=== PATIENT | male | born 1985 | race Two or more races ===

== ENCOUNTER 2017-03-15 21:55 | Emergency (ER) | payer OTHER ==
[~2017-03-15] VITALS: Ht 188 cm; Wt 114.5 kg
[~2017-03-15 21:55] MED LIST: BACTRIM,SEPT1 TABLET PO; FLEXERIL10 MG PO; MOTRIN800 MG PO; NAPROSYN500 MG PO; NOHOMEMEDS; NORCO 5/3251 TABLET PO; PEN-VEE K,VEET500 MG PO; SKELAXIN800 MG PO; ULTRAM50 MG PO; VALIUM5 MG PO; VICODIN,LORT1 TABLET PO
[2017-03-15] MEDS ORDERED: NORCO 5/3251 TABLET PO (22:36)
[2017-03-15 23:09] VITALS: BP 138/76
== END 2017-03-15 23:10 | disposition home or self-care (01) ==
LOC: EME 21:55
DX: S90.31XA Contusion of right foot, initial encounter (principal); W20.8XXA Other cause of strike by thrown, projected or falling object, initial encounter; F17.210 Nicotine dependence, cigarettes, uncomplicated
CPT/HCPCS: 73630; 99281; 99284

== ENCOUNTER 2017-07-08 10:19 | Emergency (ER) | payer SELFPAY ==
[~2017-07-08] VITALS: Ht 185.4 cm; Wt 112.3 kg
[2017-07-08 12:11] LABS: HEMATOCRIT 46.8 % (38.0-50.0); MCH 28.7 PG (29.0-34.0); MCHC 33.3 G/DL (30.0-36.0); RBC DIS.WIDTH-CV 13.3 % (11.8-14.6); RED BLOOD COUNT 5.44 M/uL (4.00-5.50); WHITE BLOOD COUNT 8.3 K/uL (4.1-10.2)
[2017-07-08 12:23] LABS: CHLORIDE 103 mEq/L (99-109); POTASSIUM 4.2 mEq/L (3.7-5.4); SODIUM 139 mEq/L (136-147)
[2017-07-08 12:25] LABS: GLUCOSE 88 mg/dL (70-99)
[2017-07-08 12:27] LABS: ANION GAP 8 MEQ/L (2-14); TOTAL BILIRUBIN 0.5 mg/dL (0.0-1.0)
[2017-07-08 12:29] LABS: ALKALINE PHOSPHATASE 80 IU/L (3-129); GFR ESTIMATE (CALCULATED) > 59 mL/min/
[2017-07-08 12:30] LABS: UREA NITROGEN (BUN) 12 mg/dL (9-23)
[2017-07-08 12:32] LABS: LIPASE 9 U/L (1.0-51.0)
[2017-07-08 12:38] LABS: ADD MIUA? YES; BILIRUBIN NEGATIVE; BLOOD NEGATIVE; COLOR YELLOW ((YELLOW)); GLUCOSE (STRIP) NEGATIVE; KETONES NEGATIVE; LEUKOCYTES NEGATIVE; NITRITE NEGATIVE; PROTEIN (STRIP) NEGATIVE; SPECIFIC GRAVITY 1.021 (1.000-1.030); UROBILINOGEN 0.2 MG/DL (0.2-1.0)
[2017-07-08 12:43] LABS: BACTERIA NONE SEEN /HPF; EPITHELIAL CELLS RARE /HPF; MUCUS NONE SEEN /LPF; UCUL ADDED? NO; WHITE BLOOD CELLS 0-5 /HPF (0-5)
[2017-07-08 12:57] LABS: MEAN PLAT.VOLUME 10.6 uM^3 (9.0-12.4); PLAT.SUFFICIENCY ADEQUATE; PLATELET COUNT 236 K/uL (156-360)
[2017-07-08] MEDS ORDERED: BENTYL20 MG PO (14:07)
[2017-07-08] MEDS ORDERED: LIDODERM 5% P1 PATCH TD (14:07)
[2017-07-08] MEDS ORDERED: TORADOL10 MG PO (14:07)
[2017-07-08 14:38] VITALS: BP 131/76
== END 2017-07-08 14:15 | disposition home or self-care (01) ==
LOC: EME 10:19
PROVIDERS: Nurse Practitioner Family
DX: R10.13 Epigastric pain (principal); J45.909 Unspecified asthma, uncomplicated; F17.200 Nicotine dependence, unspecified, uncomplicated
CPT/HCPCS: 74000; 80053; 81003; 83690; 85027; 99281; 99284; J1885

== ENCOUNTER 2017-08-24 11:16 | Emergency (ER) | payer SELFPAY ==
[~2017-08-24] VITALS: Ht 185.4 cm; Wt 118.0 kg
[~2017-08-24 11:16] MED LIST changes: +BENTYL20 MG PO; +LIDODERM 5% P1 PATCH TD; +TORADOL10 MG PO
[2017-08-24 12:04] LABS: HEMATOCRIT 48.2 % (38.0-50.0); MCH 28.9 PG (29.0-34.0); MCHC 33.4 G/DL (30.0-36.0); MCV 86.5 FL (86-99); RBC DIS.WIDTH-CV 13.3 % (11.8-14.6); RBC DIS.WIDTH-SD 42.5 % (39-53); RED BLOOD COUNT 5.57 M/uL (4.00-5.50); WHITE BLOOD COUNT 8.4 K/uL (4.1-10.2)
[2017-08-24 12:26] LABS: CHLORIDE 102 mEq/L (99-109); POTASSIUM 4.7 mEq/L (3.7-5.4); SODIUM 139 mEq/L (136-147)
[2017-08-24 12:28] LABS: GLUCOSE 92 mg/dL (70-99)
[2017-08-24 12:29] LABS: ANION GAP 11 MEQ/L (2-14)
[2017-08-24 12:30] LABS: TOTAL BILIRUBIN 0.9 mg/dL (0.0-1.0)
[2017-08-24 12:32] LABS: ALKALINE PHOSPHATASE 88 IU/L (3-129); GFR ESTIMATE (CALCULATED) > 59 mL/min/
[2017-08-24 12:32] LABS: ADD MIUA? NO; BILIRUBIN NEGATIVE; BLOOD NEGATIVE; COLOR YELLOW ((YELLOW)); GLUCOSE (STRIP) NEGATIVE; KETONES NEGATIVE; LEUKOCYTES NEGATIVE; NITRITE NEGATIVE; PROTEIN (STRIP) NEGATIVE; SPECIFIC GRAVITY 1.014 (1.000-1.030); UCUL ADDED? NO; UROBILINOGEN 0.2 MG/DL (0.2-1.0)
[2017-08-24 12:33] LABS: UREA NITROGEN (BUN) 11 mg/dL (9-23)
[2017-08-24 12:55] LABS: MEAN PLAT.VOLUME 10.9 uM^3 (9.0-12.4); PLAT.SUFFICIENCY ADEQUATE; PLATELET COUNT 258 K/uL (156-360)
[2017-08-24] MEDS ORDERED: COLACE100 MG PO (14:53)
[2017-08-24 15:19] VITALS: BP 111/76
== END 2017-08-24 15:28 | disposition home or self-care (01) ==
LOC: EME 11:16
DX: R10.32 Left lower quadrant pain (principal); J45.909 Unspecified asthma, uncomplicated; F17.200 Nicotine dependence, unspecified, uncomplicated
CPT/HCPCS: 74000; 80053; 81003; 85027; 99281; 99284